=== PATIENT | female | born 1990 | race African-American/Black ===

== ENCOUNTER 2022-03-26 09:46 | Inpatient (IN) | payer BC ==
[~2022-03-26] VITALS: Ht 147.3 cm; Wt 60.5 kg
--- NOTE | 2022-03-26 09:50 | NUR ---
Received pt 31 yrs female came c/o abdominal pain since yesterday 12/22 tender to touch with dirreah x 4 yesterday no nausea or vomiting
[2022-03-26] MEDS ORDERED: MORPHINE SULFATE INJ 2 MG/ML DISP.SYRIN IV ONE ×2 (10:00→13:00)
--- NOTE | 2022-03-26 10:00 | NUR ---
SEEN BY DR. TERRY
--- NOTE | 2022-03-26 10:05 | NUR ---
Inserted angocatheter G20 on rt ac blood drow and sent to lab UA Sent to lab
[2022-03-26] MEDS ORDERED: MORPHINE SULFATE INJ 2 MG/ML DISP.SYRIN ONE (10:09)
[2022-03-26 10:20] LABS: BASOPHILS % (AUTO) 0.2 % (0.0-2.0); EOSINOPHILS % (AUTO) 0.1 % (0.0-6.0); HEMATOCRIT 38 % (33-45); LYMPHOCYTES # (AUTO) 1.4 K/uL (0.8-4.8); LYMPHOCYTES % (AUTO) 6.3 % (20.0-44.0); MEAN CORPUSCULAR HGB CONC 32 g/dl (31.0-36.0); MEAN CORPUSCULAR VOLUME 81 fL (82-100); MONOCYTES # (AUTO) 0.7 K/uL (0.1-1.30); MONOCYTES % (AUTO) 3.3 % (2.0-12.0); NEUTROPHILS # (AUTO) 20.4 K/uL (1.8-8.9); NEUTROPHILS % (AUTO) 90.1 % (43.0-81.0); PLATELET COUNT (AUTO) 230 K/uL (150-450); RED BLOOD CELL COUNT(AUTO) 4.63 MIL/uL (4.0-5.2); WHITE BLOOD COUNT (AUTO) 22.6 K/uL (4.3-11.0)
--- NOTE | 2022-03-26 10:34 | NUR ---
TO CT SCAN OF ABDOMIN BY MARCO ANTONIO
[2022-03-26 10:40] LABS: BILIRUBIN,URINE NEGATIVE (NEGATIVE); COLOR,URINE YELLOW (YELLOW); LEUKOCYTE ESTERASE ,URINE 2+ (NEGATIVE); NITRITE, URINE NEGATIVE (NEGATIVE); PH,URINE 5.5 (5.0-8.0); PROTEIN,URINE NEGATIVE (NEGATIVE); UGLUCOSE NEGATIVE (NEGATIVE); UROBILINOGEN,URINE 0.2 EU/dL (0.2)
--- NOTE | 2022-03-26 10:43 | NUR ---
BACK FROM CT SCAN DONE
[2022-03-26 10:49] LABS: ALBUMIN 3.7 g/dL (3.4-5.0); BILIRUBIN,DIRECT 0.2 mg/dL (0.0-0.2); BILIRUBIN,TOTAL 0.7 mg/dL (0.2-1.0); CREATININE 1.1 mg/dL (0.6-1.3); POTASSIUM 3.6 mmol/L (3.5-5.1); TOTAL PROTEIN, SERUM 7.6 g/dL (6.4-8.2)
[2022-03-26 11:11] LABS: BACTERIA,URINE 1+ /HPF (None Seen); RBC,URINE 0-2 /HPF (0-2)
--- NOTE | 2022-03-26 11:38 | NUR ---
AWAITING DIPOSITION OF PATIENT BY .
--- NOTE | 2022-03-26 12:00 | NUR ---
Abdominal US done at bed side
--- NOTE | 2022-03-26 12:28 | NUR ---
BLOOD CULTURE and lactete blood drow by lab tach at bed side
--- NOTE | 2022-03-26 12:42 | NUR ---
Female partition setter accompanied female patient for ( pelvic exame)Anel Mccall
[2022-03-26] MEDS ORDERED: DIATR MEGLU/DIATRIZOATE SODIUM 120 ML BOTTLE (GASTROGRAPHIN) ONE (12:51)
[2022-03-26] MEDS ORDERED: IV NS 0.9% 1,000 ML BAG IV ONE (13:00)
[2022-03-26] MEDS ORDERED: ONDANSETRON HCL/PF - ER 4 MG/2 ML VIAL IV ONE (13:00)
--- NOTE | 2022-03-26 13:14 | NUR ---
LISHA GILLIS SENT TO LAB
[2022-03-26] MEDS ORDERED: MORPHINE SULFATE INJ 4 MG/ML DISP.SYRIN ONE (13:17)
[2022-03-26] MEDS ORDERED: ONDANSETRON HCL/PF 4 MG/2 ML VIAL ONE (13:17)
[2022-03-26] MEDS ORDERED: IOHEXOL-300 100 ML VIAL IV ONE (13:42)
--- NOTE | 2022-03-26 13:49 | NUR ---
TO CT SCAN with IV contrast
--- NOTE | 2022-03-26 14:13 | NUR ---
MOVE SHEET SUBMITTED.
[2022-03-26] MEDS ORDERED: PIPERACILLIN /TAZOBACTAM 3.375 G in IV D5W 50 ML IV ONE (14:30)
[2022-03-26] MEDS ORDERED: PIPERACILLIN /TAZOBACTAM 3.375 G VIAL IV ONE (15:10)
--- NOTE | 2022-03-26 15:21 | NUR ---
WATING FOR ROOM
[2022-03-26] MEDS ORDERED: MORPHINE SULFATE INJ 2 MG/ML DISP.SYRIN IV PRN (15:30)
[2022-03-26] MEDS ORDERED: ONDANSETRON HCL/PF 4 MG/2 ML VIAL IVP PRN (15:30)
--- NOTE | 2022-03-26 16:05 | NUR ---
VITAL SIGNS UPDATED.
--- NOTE | 2022-03-26 16:07 | NUR ---
TEXT DR. TREJO FOR MRI APPROVAL.
--- NOTE | 2022-03-26 16:09 | NUR ---
MRI APPROVED, DIP PAINTER NOTIFIED, PATIENT HAS TO BE NPO.
--- NOTE | 2022-03-26 16:55 | NUR ---
TO MRI VIA WC AWAKE AND ALERT
--- NOTE | 2022-03-26 17:16 | NUR ---
GOT BED 306-1.
--- NOTE | 2022-03-26 18:13 | NUR ---
HAND OFF ALEXANDREA AYALA AFTER MRI TO ROOM 306-1
--- NOTE | 2022-03-26 18:40 | NUR ---
RN NOTES PATIENT ARRIVED FROM ER REPORT GIVEN BY CECIL RN. PATIENT ALERT ORIENTED X 4. NO ACUTE DISTRESS NOTED, BREATHING UNLABORED, NO SOB NOTED. VITAL SIGNS STABLE. IV ACCESS PATENT AND INTACT. ORIENTED TO THE ROOM, NEEDS ATTENDED. SAFETY MEASURES IN PLACE, CALL LIGHT WITHIN REACH, WILL ENDORSE TO NIGHT NURSE FOR CONTINUITY OF CARE AND ADMISSION
[2022-03-26] MEDS: IV NS 0.9% 1,000 ML IV PRN (18:56)
--- NOTE | 2022-03-26 20:12 | NUR ---
MS RN OPENING NOTE PATIENT AWAKE IN BED, ALERT/ORIENTED X 4, PT ABLE TO MAKE NEEDS KNOWN. PATIENT C/O 8/10 ABDOMINAL PAIN, WILL ADMINISTER PAIN MEDS ORDERED. PT STABLE ON RA, NO S/S OF DISTRESS OR SOB NOTED, BREATHING EVEN AND UNLABORED. IV ACCESS ON RAC #20G INTACT AND INFUSING NS @ 75 ML/HR. PER DAYSHIFT RN, PATIENT IS ABLE TO AMBULATE WITH STEADY GAIT. SAFETY MEASURES IN PLACE: CALL LIGHT WITHIN REACH, SIDE RAILS UP X 2, BED LOCKED IN LOWEST POSITION, BED ALARM ON. WILL CONTINUE TO MONITOR PATIENT
[2022-03-26 20:57] VITALS: BP 96/63
[2022-03-26] MEDS: PIPERACILLIN /TAZOBACTAM 4.5 G in IV D5W 50 ML IV SCH (23:10)
[2022-03-27 06:01] LABS: CALCIUM, SERUM 8.4 mg/dL (8.5-10.1); CREATININE 1.1 mg/dL (0.6-1.3); PHOSPHORUS 2.8 mg/dL (2.5-4.9); POTASSIUM 3.5 mmol/L (3.5-5.1)
[2022-03-27] MEDS: PIPERACILLIN /TAZOBACTAM 4.5 G in IV D5W 50 ML IV SCH (06:58)
[2022-03-27 07:07] LABS: BASOPHILS % (AUTO) 0.1 % (0.0-2.0); EOSINOPHILS % (AUTO) 0.7 % (0.0-6.0); HEMATOCRIT 34 % (33-45); HEMOGLOBIN 10.9 g/dL (11.5-14.8); LYMPHOCYTES # (AUTO) 2.2 K/uL (0.8-4.8); LYMPHOCYTES % (AUTO) 15.2 % (20.0-44.0); MEAN CORPUSCULAR HGB CONC 32 g/dl (31.0-36.0); MEAN CORPUSCULAR VOLUME 82 fL (82-100); MONOCYTES # (AUTO) 0.5 K/uL (0.1-1.30); MONOCYTES % (AUTO) 3.4 % (2.0-12.0); NEUTROPHILS # (AUTO) 11.5 K/uL (1.8-8.9); NEUTROPHILS % (AUTO) 80.6 % (43.0-81.0); PLATELET COUNT (AUTO) 221 K/uL (150-450); WHITE BLOOD COUNT (AUTO) 14.3 K/uL (4.3-11.0)
--- NOTE | 2022-03-27 07:20 | NUR ---
MS RN CLOSING NOTE PATIENT AWAKE IN BED, ALERT/ORIENTED X 4, PT ABLE TO MAKE NEEDS KNOWN. PT STABLE ON RA, NO S/S OF DISTRESS OR SOB NOTED, BREATHING EVEN AND UNLABORED. IV ACCESS ON RAC #20G INTACT AND INFUSING ZOSYN @ 100 ML/HR. MEDICATIONS GIVEN ORDERED, PT NEEDS MET THROUGHOUT SHIFT. PATIENT ABLE TO AMBULATE TO BATHROOM WITH STEADY GAIT. SAFETY MEASURES IN PLACE: CALL LIGHT WITHIN REACH, SIDE RAILS UP X 2, BED LOCKED IN LOWEST POSITION, BED ALARM ON. ENDORSED TO DAYSHIFT NURSE FOR CONTINUITY OF CARE
--- NOTE | 2022-03-27 07:51 | NUR ---
RN OPENING NOTE PATIENT RECEIVED IN BED, AO X 4, ABLE TO RESPONDS ALL STIMULI. IN NO ACUTE DISTRESS NOTED. RESPIRATORY EVEN AND UNLABORED IN ROOM AIR. SKIN IS WARM TO TOUCH, KEEP CLEAN/DRY. KEPT ELEVATED HOB FOR ENSURE AIRWAY AND ASPIRATION PRECAUTION, ALSO LOWEST POSITION OF THE BED, S/R UP X 2, BED ALARM IS ON AT ALL THE TIMES. ALL SAFETY PRECAUTION APPLIED. CALL LIGHT WITHIN REACH, WILL CONTINUE TO MONITOR.
[2022-03-27 08:00] VITALS: BP 89/57
[2022-03-27] MEDS ORDERED: PANTOPRAZOLE 40 MG VIAL IV SCH (09:00)
[2022-03-27] MEDS ORDERED: GADOTERATE MEGLUMINE 10 MMOL/20 ML VIAL IV ONE (09:48)
[2022-03-27] MEDS: PIPERACILLIN /TAZOBACTAM 4.5 G in IV D5W 100 ML IV SCH ×2 (13:50→22:46)
[2022-03-27 16:00] VITALS: BP 100/67
[2022-03-27] MEDS ORDERED: ACETAMINOPHEN 325 MG TABLET PO PRN (17:30)
[2022-03-27] MEDS: DIPHENOXYLATE HCL/ATROP SULF 1 UDTAB TABLET PO PRN (17:52)
--- NOTE | 2022-03-27 18:00 | NUR ---
RN CLOSING NOTE PATIENT IN BED AND RESTING. IN NO ACUTE DISTRESS OBSERVED. RESPIRATORY EVEN AND UNLOBED IN ROOM AIR. GIVEN TYLENOL AND LOMOTIL FOR DIARRHEA AND ABDOMINAL CRAMPY PAIN. SKIN IS WARM TO TOUCH, KEEP CLEAN/DRY. KEPT ELEVATED HOB FOR ENSURE AIR WAY AND ASPIRATION PRECAUTION, ALSO LOWEST BED POSITION. BED ALARM IS ON AT ALL THE TIMES, ALL SAFETY PRECAUTION APPLIED. CALL LIGHT WITHIN REACH, WILL ENDORSE NAPHTHALENE OPERATOR HELPER.
[2022-03-27 20:00] VITALS: BP 87/53
--- NOTE | 2022-03-27 20:16 | NUR ---
MS RN OPENING NOTE PATIENT AWAKE IN BED, ALERT/ORIENTED X 4, PT ABLE TO MAKE NEEDS KNOWN. PROVIDED PATIENT WITH HEATING PACK FOR ABDOMEN AND MENSTRUAL PADS. PATIENT STABLE ON RA, NO S/S OF DISTRESS OR SOB NOTED, BREATHING EVEN AND UNLABORED. PATIENT'S BP LOW, CONNECTED PATIENT'S IV BACK TO IV FLUIDS, INFUSING NS @ 75 ML/HR. SAFETY MEASURES IN PLACE: CALL LIGHT WITHIN REACH, SIDE RAILS UP X 2, BED LOCKED IN LOWEST POSITION, BED ALARM ON. WILL CONTINUE TO MONITOR PATIENT
[2022-03-27] MEDS: METRONIDAZOLE 250 MG TABLET PO SCH (21:08)
[2022-03-28] MEDS: IV NS 0.9% 1,000 ML IV PRN (01:43)
[2022-03-28 06:18] LABS: BASOPHILS % (AUTO) 0.3 % (0.0-2.0); EOSINOPHILS % (AUTO) 3.1 % (0.0-6.0); HEMATOCRIT 33 % (33-45); HEMOGLOBIN 10.7 g/dL (11.5-14.8); LYMPHOCYTES # (AUTO) 2.4 K/uL (0.8-4.8); MEAN CORPUSCULAR HGB CONC 33 g/dl (31.0-36.0); MEAN CORPUSCULAR VOLUME 82 fL (82-100); MONOCYTES # (AUTO) 0.4 K/uL (0.1-1.30); MONOCYTES % (AUTO) 6.1 % (2.0-12.0); NEUTROPHILS # (AUTO) 3.6 K/uL (1.8-8.9); NEUTROPHILS % (AUTO) 54.5 % (43.0-81.0); PLATELET COUNT (AUTO) 221 K/uL (150-450); RED BLOOD CELL COUNT(AUTO) 3.96 MIL/uL (4.0-5.2); WHITE BLOOD COUNT (AUTO) 6.6 K/uL (4.3-11.0)
[2022-03-28] MEDS: PIPERACILLIN /TAZOBACTAM 4.5 G in IV D5W 100 ML IV SCH (06:20)
[2022-03-28 06:29] LABS: CALCIUM, SERUM 8.3 mg/dL (8.5-10.1); CREATININE 1.1 mg/dL (0.6-1.3); POTASSIUM 3.8 mmol/L (3.5-5.1)
[2022-03-28 06:30] LABS: ALBUMIN 2.6 g/dL (3.4-5.0); BILIRUBIN,TOTAL 0.3 mg/dL (0.2-1.0); MAGNESIUM 2.2 mg/dL (1.8-2.4); TOTAL PROTEIN, SERUM 6.2 g/dL (6.4-8.2)
--- NOTE | 2022-03-28 07:00 | NUR ---
MS RN CLOSING NOTE PATIENT AWAKE IN BED, ALERT/ORIENTED X 4, PT ABLE TO MAKE NEEDS KNOWN. PT STABLE ON RA, NO S/S OF DISTRESS OR SOB NOTED, BREATHING EVEN AND UNLABORED. IV ACCESS ON RAC #20G INTACT AND INFUSING NS @ 75 ML/HR. MEDICATIONS GIVEN ORDERED, PT NEEDS MET THROUGHOUT SHIFT. PATIENT ABLE TO AMBULATE TO BATHROOM WITH STEADY GAIT. SAFETY MEASURES IN PLACE: CALL LIGHT WITHIN REACH, SIDE RAILS UP X 2, BED LOCKED IN LOWEST POSITION, BED ALARM ON. WILL ENDORSE TO DAYSHIFT NURSE FOR CONTINUITY OF CARE
[2022-03-28 08:00] VITALS: BP 92/53
[2022-03-28] MEDS ORDERED: PANTOPRAZOLE 40 MG TABLET.DR PO SCH (09:00)
--- NOTE | 2022-03-28 09:00 | NUR ---
MS RN OPENING NOTE PATIENT AWAKE IN BED, ALERT/ORIENTED X 4, PT ABLE TO MAKE NEEDS KNOWN. PATIENT STABLE ON RA, NO S/S OF DISTRESS OR SOB NOTED, BREATHING EVEN AND UNLABORED. SAFETY MEASURES IN PLACE: CALL LIGHT WITHIN REACH, SIDE RAILS UP X 2, BED LOCKED IN LOWEST POSITION, BED ALARM ON. WILL CONTINUE TO MONITOR.
[2022-03-28] MEDS: METRONIDAZOLE 250 MG TABLET PO SCH ×2 (09:58→16:36)
--- NOTE | 2022-03-28 12:00 | NUR ---
dr. Yahir Wilkerson informed about consult
[2022-03-28] MEDS ORDERED: PIPERACILLIN /TAZOBACTAM 3.375 G in IV D5W 100 ML IV SCH (13:00)
[2022-03-28 16:00] VITALS: BP 90/54
[2022-03-28] MEDS: DIPHENOXYLATE HCL/ATROP SULF 1 UDTAB TABLET PO PRN (17:19)
--- NOTE | 2022-03-28 17:30 | NUR ---
pt is upset and asking for surgeon.Dr contacted again and hi is on his way, Pt informed.
--- NOTE | 2022-03-28 18:15 | NUR ---
Dr. Sinclair is at bedside.
== END 2022-03-28 19:30 | disposition home or self-care (01) | DRG 392 ==
LOC: ER 10:05 → MED 17:29
DX: A08.4 Viral intestinal infection, unspecified (principal); E87.1 Hypo-osmolality and hyponatremia; N39.0 Urinary tract infection, site not specified; N83.202 Unspecified ovarian cyst, left side; Z20.822 Contact with and (suspected) exposure to COVID-19; D50.9 Iron deficiency anemia, unspecified; E88.09 Other disorders of plasma-protein metabolism, not elsewhere classified; R19.09 Other intra-abdominal and pelvic swelling, mass and lump
CPT/HCPCS: 36415; 72197-TC; 74160-TC; 74183; 76856-TC; 80048-TC; 80053-TC; 80076-TC; 81001; 83605-TC; 83690-TC; 83735-TC; 84100-TC; 84703-TC; 85025-TC; 87040-TC; 87081-TC; 87086-TC; A9575; C9113; C9803; G0378; J2270; J2405; J2543; J7030; J7060; Q9963; Q9967